=== PATIENT | female | born 1970 | race Caucasian/White ===

== ENCOUNTER 2024-03-21 12:55 | Outpatient (CLI) | payer OTHER | END 2024-03-21 12:56 | disposition home or self-care (01) | LOC: CSHMAMMO 12:55 | PROVIDERS: ATTEND Family Medicine | DX: Z12.31 Encounter for screening mammogram for malignant neoplasm of breast (principal); N64.89 Other specified disorders of breast | CPT/HCPCS: 77063; 77067 ==

== ENCOUNTER 2025-05-12 09:27 | Outpatient (CLI) | payer OTHER | END 2025-05-12 09:28 | disposition home or self-care (01) | LOC: CSHMAMMO 09:27 | PROVIDERS: ATTEND Nurse Practitioner Family | DX: N63.22 Unspecified lump in the left breast, upper inner quadrant (principal) | CPT/HCPCS: 77066; G0279 ==

== ENCOUNTER → 2025-05-20 | Day surgery (SDC) | payer OTHER | LOC: CSHULT 12:17 | PROVIDERS: ATTEND Nurse Practitioner Family | PROC: 0HBU3ZX Excision of Left Breast, Percutaneous Approach, Diagnostic (ICD-10-PCS; principal; 2025-05-20) | DX: D24.2 Benign neoplasm of left breast (principal) | CPT/HCPCS: 19083; 88305; A4648 ==